=== PATIENT | female | born 1955 | race Caucasian/White ===

== ENCOUNTER → 2019-01-10 | Day surgery (SDC) | payer OTHER ==
--- NOTE | 2019-01-06 16:50 | Diagnostic Imaging Report ---
Abdomen, 2 views. History: Preoperative Findings: Small stone overlies the interpolar region of the left kidney. The intestinal gas pattern is nonobstructive. There no masses. Pelvic calcifications appear compatible with phleboliths. The osseous structures are intact. IMPRESSION: Small left interpolar renal stone. Signed by: Dr. Jose Walker DO on 01/06/2019 4:46 PM
[2019-01-06 17:21] LABS: ANION GAP 13.1 mmol/L (8-16); BLOOD UREA NITROGEN 15 mg/dL (7-26); BUN/CREATININE RATIO 19 (6-25); CALCIUM 9.8 mg/dL (8.4-10.2); CARBON DIOXIDE 28 mmol/L (22-29); CHLORIDE 98 mmol/L (98-107); CREATININE, SERUM 0.77 mg/dL (0.57-1.11); EST GLOMERULAR FILTRATION RATE > 60 ML/MIN (60-); GLUCOSE 225 mg/dL (74-118); POTASSIUM 3.1 mmol/L (3.5-5.1); SODIUM 136 mmol/L (136-145)
[~2019-01-10] MED LIST: ANASTROZOLE1 MG PO; ATORVASTATIN CA20 MG PO; CEFTRIAXONE SOD 1 GM/NS 50 ML 50 ML IV ONE; DEXAMETHASONE SOD PHOS INJ 4 MG/ML VIAL ONE; FENTANYL CITRATE/PF 100MCG/2 ML INJ ONE; HYDROCHLOROTHIA25 MG PO; IOPAMIDOL 610MG/1ML 300 MG/ML VIAL IV ONE; LIDOCAINE HCL 2% LOCAL INJ 5 ML SDV VIAL INJ ONE; LOSARTAN POTASS25 MG PO; MIDAZOLAM HCL 2 MG/2 ML VIAL ONE; NADOLOL80 MG PO; ONDANSETRON HCL INJ 2MG/ML 2ML 2 MG/ML VIAL ONE; PROPOFOL IV EMULSION 10 MG/ML 20 ML VIAL ONE; SEVOFLURANE INHAL SOLN 250 ML PEN BTL ONE; SYNTHROID50 MCG PO; VICTOZA 2-0.6 MG/0.1 INJ; XIGDUO XR PO; ZYRTEC10 M3 PO; [UNRECOGNIZED DRUG - OTHER] PO
--- OUTSIDE RECORDS SUMMARY | 2019-01-10 05:10 | XMS REPORT | Clinical Summary ---
Author Author [facility] Organization [facility] Address Unknown Phone Unavailable Care Team Providers Care Intellectual Property Counsel Name Role Phone Vanna Washington MD PCP Allergies Comments Active Allergy Reactions Severity Noted Date Aspirin Ibuprofen Sulfa (Sulfonamide Antibiotics) Tetanus Vaccines And Toxoid Medications End Date Status Medication Sig Dispensed Refills Start Date Active levothyroxine (SYNTHROID, TAKE 1 TABLET 1 LEVOXYL) 50 mcg tablet BY MOUTH 7 EVERY MORNING FOR 30 DAYS. Active OMEGA-3S/DHA/EPA/FISH OIL Take by 0 (OMEGA 3 ORAL) mouth. Active B INFANTIS/B ANI/B WILD/B Take by 0 BIFID (PROBIOTIC 4X ORAL) mouth. Active ascorbic acid, vitamin C, Take 1,000 mg 0 (vitamin C) 1000 MG by mouth tablet daily. Active VITAMIN B COMPLEX Take by 0 (B-COMPLEX ORAL) mouth. Active cholecalciferol, vitamin Take 1,000 0 D3, (VITAMIN D3) 1,000 Units by unit tablet mouth daily. Active HERBAL DRUGS (COLON Take by 0 HERBAL CLEANSER ORAL) mouth. Active cetirizine (ZyrTEC) 10 MG Take 10 mg by 0 tablet mouth daily. Active atorvastatin (LIPITOR) 20 Take 1 tablet 90 tablet 1 MG tablet (20 mg total) 7 by mouth nightly. Active nadolol (CORGARD) 80 MG Take 1 tablet 90 tablet 1 tablet (80 mg total) 7 by mouth daily. Active triamterene-hydrochloroth Take 1 tablet 90 tablet 1 iazid (MAXZIDE) 75-50 mg by mouth 7 per tablet daily. Active pen needle, diabetic 32 Once daily 100 each 3 gauge x 1/6" needle 7 Active VICTOZA 2-BUCK 0.6 mg/0.1 INJECT 0.2 ML 3 pen 2 mL (18 mg/3 mL) pen (1.2 MG 7 injector TOTAL) UNDER THE SKIN DAILY FOR 30 DAYS. Active dapagliflozin-metformin 1 tablet 90 each 0 (XIGDUO XR) 5-1,000 mg twice daily 7 tablet, IR & ER, biphasic 24hr Active BD ULTRA-FINE KRUNAL PEN EVERY DAY 100 each 1 NEEDLE 32 gauge x /32" 8 needle Active Problems Problem Noted Date Osteoarthritis of knee 06/12/2017 Type 2 diabetes mellitus with stage 2 chronic kidney disease, without 06/12/2017 long-term current use of insulin Hypothyroidism 06/12/2017 Meniere disease 06/12/2017 Hyperlipidemia LDL goal <100 06/12/2017 Migraine without status migrainosus, not intractable 06/12/2017 Encounters Care Team Description Date Type Specialty Vanna Washington MD 09/16/2018 Refill Internal Medicine Vanna Washington MD 05/02/2018 Refill Internal Medicine after 01/09/2018 Family History Medical History Relation Name Comments Lung cancer Brother Arthritis Father Merritt's palsy Father Diabetes Father Glaucoma Father Heart disease Father Diabetes Mother Hypertension Mother Stroke Mother Melanoma Sister Relation Name Status Comments Brother Brother Father Maternal Grandfather Maternal Grandmother Mother Paternal Grandfather Paternal Grandmother Sister Alive Sister Social History Date Tobacco Use Types Packs/Day Years Used Quit: 06/12/1990 Former Smoker Cigarettes 3 5 Alcohol Use Drinks/Week oz/Week Comments Yes Sex Assigned at Date Recorded Not on file Industry Job Start Date Occupation Not on file Not on file Not on file Travel End Travel History Travel Start No recent travel history available. Last Filed Vital Signs Not on file Plan of Treatment Health Maintenance Due Date Last Done Comments DIABETIC RETINAL EYE EXAM 1955 DIABETIC FOOT EXAM 1965 CERVICAL CANCER SCREENING 1976 BREAST CANCER SCREENING 2005 COLON CANCER SCREENING 2005 SHINGLES VACCINES (#1) 2005 INFLUENZA VACCINE 06/12/2018 Results Not on fileafter 01/09/2018 Insurance Payer Benefit Subscriber ID Type Phone Address Plan / Group [facility] xxxxxxxxx HMO/PPO THCARE CHOICE/CHO ICE + Advance Directives Patient has advance care planning documents on file. For more information, andressa velasquez contact: Florencio Borges [address] [place] [address]
--- OUTSIDE RECORDS SUMMARY | 2019-01-10 05:10 | XMS REPORT ---
Author Author [facility] Address Unknown Phone Unavailable Care Team Providers Care News Department Intern Name Role Phone ROBERTO PATEL Unavailable Unavailable Problems This patient has no known problems. Allergies, Adverse Reactions, Alerts This patient has no known allergies or adverse reactions. Medications This patient has no known medications. Results Test Description Test Time Test Comments Text Results Atomic Results Result Comments ABDOMEN-1VIEW (KU) 2019-01-06 16:45:00 [place] [address] Patient Name: JOSTIN TIERNEY MR #: [id number] : 1955 Age/Sex: 63/F Req #: [id number] Adm Physician: Ordered by: ROBERTO PATEL MD Report #: [id number] Location: OR Room/Bed: Procedure: [id number] DX/ABDOMEN-1VIEW ([facility]U) Exam Date: 01/06/19 Exam Time: 1612 REPORT STATUS: Signed Abdomen, 2 views. History: Preoperative Findi ngs: Small stone overlies the interpolar region of the left kidney. The intestinal gas pattern is nonobstructive. There no masses. Pelvic calcifications appear compatible with phleboliths. The osseous structures are intact. IMPRESSION: Small left interpolar renal stone. Signed by: Dr. Sonal Walker DO on 01/06/2019 4:46 PM Dictated By: SONAL WALKER DO 45 Transcribed By: GLORIA on 01/06/191645 COPY TO: ROBERTO PATEL MD
[2019-01-10 08:45] VITALS: BP 119/75
--- NOTE | 2019-01-10 18:24 | Operative Report ---
DATE OF PROCEDURE: 01/10/2019 SURGEON: Kostas Acevedo MD PREOPERATIVE DIAGNOSES: 1. Left kidney stone. 2. Multiple chronic urinary tract infections. 3. Clinical signs and symptoms of interstitial cystitis. POSTOPERATIVE DIAGNOSES: 1. Left kidney stone. 2. Multiple chronic urinary tract infections. 3. Clinical signs and symptoms of interstitial cystitis. PROCEDURES: 1. Cystourethroscopy with hydrodistention (entirely separate procedure for the diagnosis of clinical signs and symptoms of interstitial cystitis without hematuria). 2. Cystourethroscopy with left ureteric catheterization and left retrograde pyelogram (a separate procedure for multiple chronic urinary tract infections). 3. Cystourethroscopy with right ureteric catheterization and right retrograde pyelogram (a separate procedure for multiple chronic urinary tract infections). 4. Supervision of fluoroscopy. 5. Interpretation of retrograde pyelography. 6. Shock wave lithotripsy left side staged (entirely separate procedure for the left kidney stone). ANESTHESIA: General. ESTIMATED BLOOD LOSS: Minimal. COMPLICATIONS: None. INDICATIONS FOR PROCEDURE: Ms. Yasmin Ansari is a 63-year-old female with a history of hematuria, urinary tract infections, and clinical symptoms of interstitial cystitis. She and I had a long discussion regarding the alternatives, the risks and the benefits, including doing nothing, cystoscopy, hydrodistention, retrogrades, renal ultrasound, shock wave lithotripsy, ureteroscopy, percutaneous surgery, open surgery. She voiced understanding of the options, of the alternatives, of the risks, and of the benefits and she elected to proceed. PROCEDURE IN DETAIL: After informed consent was obtained, the patient was taken to the operative suite. She was placed supine on the operating table. She underwent general anesthesia by the service. She was placed in dorsal lithotomy position. Sterilely prepped and draped in standard fashion for cystoscopy. A 22.5-Togolese cystoscope was inserted per urethra and normal urethra was noted. Panendoscopy performed. Hydrodistention was performed, revealed a capacity of 800 mL, no glomeruations no hunners ulcers. Please note, retrograde pyelogram revealed a stone in the left lower pole of the kidney. The shock wave lithotripsy head was then brought into view. The stone was localized in the X, Y, and Z planes. A total of 3000 shocks were delivered to the stone. The patient tolerated the procedure well and was transported to recovery room in an excellent condition with no untoward effects noted. Supervision of fluoroscopy, interpretation of retrograde pyelography: I was present throughout the entire procedure and I supervised the use of fluoroscopy as no radiologist was present. Attention was turned bilaterally. Right collecting sytem normal. There was a stone in left lower pole. IMPRESSION: Left lower pole renal calculi. MD SALOMON Jones/VASUL /[id number] MTDD
== END | disposition home or self-care (01) ==
LOC: OR 05:00
PROVIDERS: ATTEND Urology
DX: N20.0 Calculus of kidney (principal); N39.0 Urinary tract infection, site not specified; N39.46 Mixed incontinence; I10 Essential (primary) hypertension; E11.9 Type 2 diabetes mellitus without complications; R81 Glycosuria; Z88.6 Allergy status to analgesic agent; Z88.2 Allergy status to sulfonamides; Z88.7 Allergy status to serum and vaccine; Z88.8 Allergy status to other drugs, medicaments and biological substances; Z01.810 Encounter for preprocedural cardiovascular examination; Z79.84 Long term (current) use of oral hypoglycemic drugs
CPT/HCPCS: 36415 ×2; 50590; 74018; 80048; 82948; 84132; 93005; C1758; J0696; J1100; J2001; J2250; J2405; J2704; Q9967

== ENCOUNTER → 2019-02-17 | Outpatient (CLI) | payer OTHER ==
[~2019-02-17] MED LIST changes: -CEFTRIAXONE SOD 1 GM/NS 50 ML 50 ML IV ONE; -DEXAMETHASONE SOD PHOS INJ 4 MG/ML VIAL ONE; -FENTANYL CITRATE/PF 100MCG/2 ML INJ ONE; -IOPAMIDOL 610MG/1ML 300 MG/ML VIAL IV ONE; -LIDOCAINE HCL 2% LOCAL INJ 5 ML SDV VIAL INJ ONE; -MIDAZOLAM HCL 2 MG/2 ML VIAL ONE; -ONDANSETRON HCL INJ 2MG/ML 2ML 2 MG/ML VIAL ONE; -PROPOFOL IV EMULSION 10 MG/ML 20 ML VIAL ONE; -SEVOFLURANE INHAL SOLN 250 ML PEN BTL ONE
--- NOTE | 2019-02-17 11:25 | Diagnostic Imaging Report ---
Exam: KUB-2 views Clinical History: Renal calculus. Comparison: KUB 01/06/2019. Findings: Nonobstructive bowel gas pattern. Bowel gas partially obscures visualization of the kidneys. There is a 3 mm calcification overlying the left mid kidney, unchanged. No evidence of calcification overlying the right kidney or expected location of the ureters. No acute osseous abnormality. Impression: Unchanged appearance of 3 mm left mid pole renal stone. Signed by: Dr. Lori Magallon MD on 02/17/2019 11:22 AM
== END ==
LOC: RAD 10:02
PROVIDERS: ATTEND Urology
DX: N20.0 Calculus of kidney (principal)
CPT/HCPCS: 74018

== ENCOUNTER → 2019-04-25 | Outpatient (CLI) | payer OTHER ==
--- NOTE | 2019-04-25 11:09 | Diagnostic Imaging Report ---
Exam: KUB-2 views Clinical History: Renal calculus. Comparison: KUB 02/17/19. Findings: Nonobstructive bowel gas pattern. Bowel gas partially obscures visualization of the kidneys. There is a 3 mm calcification overlying the left mid kidney, unchanged. No evidence of calcification overlying the right kidney or expected location of the ureters. No acute osseous abnormality. Impression: Unchanged appearance of 3 mm left mid pole renal stone. Signed by: Dr. Lori Magallon MD on 04/25/2019 11:06 AM
== END ==
LOC: RAD 10:00
PROVIDERS: ATTEND Urology
DX: N20.0 Calculus of kidney (principal)
CPT/HCPCS: 74018

== ENCOUNTER → 2019-07-28 | Outpatient (CLI) | payer OTHER ==
--- NOTE | 2019-07-28 14:18 | Diagnostic Imaging Report ---
Exam: KUB - 2 views Indication: Renal calculi Comparison: Multiple prior KUBs, most recently of 04/25/2019 Findings: There is a 3 mm left upper pole renal calculus which appears similar compared to 04/25/2019. No other radiographically apparent renal calculi. Small phleboliths in the pelvis. The osseous structures appear unremarkable. Nonobstructive bowel gas pattern. No free air. Impression: Unchanged 3 mm left upper pole renal calculus. No new radiographically apparent renal calculi. Signed by: Perry Noyola MD on 07/28/2019 2:15 PM
== END ==
LOC: RAD 13:40
PROVIDERS: ATTEND Urology
DX: N20.0 Calculus of kidney (principal)
CPT/HCPCS: 74018